=== PATIENT | male | born 1955 | race Native Hawaiian/Other Pacific Islander ===

== ENCOUNTER 2021-10-03 13:27 | Outpatient (RCR) | payer MEDICARE ==
[2021-10-01 14:43] VITALS: BP 141/74
[2021-10-01 15:43] LABS: HEMOGLOBIN 7.4 g/dL (13.3-17.7); MEAN PLATELET VOLUME 10.7 fL (9.0-12.2); WHITE BLOOD COUNT 4.3 10^3/uL (4.3-11.0)
[2021-10-01 16:06] LABS: ALBUMIN 3.1 GM/DL (3.2-4.5); BILIRUBIN,TOTAL 0.7 MG/DL (0.1-1.0); CALCIUM 8.7 MG/DL (8.5-10.1); CREATININE SERUM 6.51 MG/DL (0.60-1.30); POTASSIUM 4.1 MMOL/L (3.6-5.0); TOTAL PROTEIN 6.3 GM/DL (6.4-8.2)
[~2021-10-03] VITALS: Ht 183 cm; Wt 109.0 kg
[2021-10-03 13:00] VITALS: BP 0/0
== END 2021-10-31 | disposition home or self-care (01) ==
LOC: EDBD 13:27 → SDC 13:27
PROVIDERS: ATTEND Nurse Practitioner Family
DX: A41.9 Sepsis, unspecified organism (principal); Z79.2 Long term (current) use of antibiotics
CPT/HCPCS: 36569; 76937; 80053; 85027; C1751; 36415

== ENCOUNTER → 2021-10-10 | Outpatient (CLI) | payer MEDICARE | LOC: WOUNDCARE 12:56 | PROVIDERS: ATTEND Family Medicine | DX: T81.31XA Disruption of external operation (surgical) wound, not elsewhere classified, initial encounter (principal); E11.621 Type 2 diabetes mellitus with foot ulcer; E11.622 Type 2 diabetes mellitus with other skin ulcer; L97.512 Non-pressure chronic ulcer of other part of right foot with fat layer exposed; I70.235 Atherosclerosis of native arteries of right leg with ulceration of other part of foot; I70.242 Atherosclerosis of native arteries of left leg with ulceration of calf; E11.22 Type 2 diabetes mellitus with diabetic chronic kidney disease; N18.6 End stage renal disease; D69.59 Other secondary thrombocytopenia; D63.1 Anemia in chronic kidney disease; I89.0 Lymphedema, not elsewhere classified; E66.01 Morbid (severe) obesity due to excess calories | CPT/HCPCS: 87070; 87205; A6197; G0463; 87077; 99215 ==

== ENCOUNTER → 2021-10-12 | Outpatient (CLI) | payer MEDICARE ==
--- NOTE | 2021-10-12 16:32 | Diagnostic Imaging Report ---
INDICATION: History of diabetes, hypertension and hyperlipidemia. TECHNIQUE: Segmental pulse pressures were performed of the upper and lower extremities. FINDINGS: Resting Doppler Blood Pressures RIGHT Brachial: >254 mmHg Ankle (Posterior Tibial): 90 mm Hg Ankle (Dorsalis Pedis): >254 mm Hg Index: NC LEFT Brachial: >254 mmHg Ankle (Posterior Tibial): - mm Hg Ankle (Dorsalis Pedis): - mm Hg Index: NC IMPRESSION: Systemic hypertension. Nondiagnostic segmental pulse pressures. Ankle-Brachial Index Diagnosis/Interpretation <=0.90 Peripheral Arterial Disease 0.91-0.99 Borderline 1.00-1.40 Normal >1.40 Concern for noncompressible arteries, (assoc with Diabetes Mellitus) Dictated by: Dictated on workstation # [id number]
== END ==
LOC: RAD 14:45
PROVIDERS: ATTEND Family Medicine
DX: T81.31XA Disruption of external operation (surgical) wound, not elsewhere classified, initial encounter (principal); I70.235 Atherosclerosis of native arteries of right leg with ulceration of other part of foot; E11.621 Type 2 diabetes mellitus with foot ulcer; E11.622 Type 2 diabetes mellitus with other skin ulcer; L97.512 Non-pressure chronic ulcer of other part of right foot with fat layer exposed; I70.242 Atherosclerosis of native arteries of left leg with ulceration of calf; E11.22 Type 2 diabetes mellitus with diabetic chronic kidney disease; I12.9 Hypertensive chronic kidney disease with stage 1 through stage 4 chronic kidney disease, or unspecified chronic kidney disease; N18.6 End stage renal disease; D68.59 Other primary thrombophilia; D63.1 Anemia in chronic kidney disease; I89.0 Lymphedema, not elsewhere classified; E66.01 Morbid (severe) obesity due to excess calories; E78.5 Hyperlipidemia, unspecified
CPT/HCPCS: 93923

== ENCOUNTER → 2021-10-19 | Outpatient (CLI) | payer MEDICARE | LOC: WOUNDCARE 08:08 | PROVIDERS: ATTEND Family Medicine | DX: T81.31XA Disruption of external operation (surgical) wound, not elsewhere classified, initial encounter (principal); E11.621 Type 2 diabetes mellitus with foot ulcer; E11.622 Type 2 diabetes mellitus with other skin ulcer; L97.512 Non-pressure chronic ulcer of other part of right foot with fat layer exposed; I70.235 Atherosclerosis of native arteries of right leg with ulceration of other part of foot; I70.242 Atherosclerosis of native arteries of left leg with ulceration of calf; E11.22 Type 2 diabetes mellitus with diabetic chronic kidney disease; N18.6 End stage renal disease; D63.1 Anemia in chronic kidney disease; I89.0 Lymphedema, not elsewhere classified; E66.01 Morbid (severe) obesity due to excess calories; T87.44 Infection of amputation stump, left lower extremity; B95.2 Enterococcus as the cause of diseases classified elsewhere; Z16.22 Resistance to vancomycin related antibiotics; Z16.35 Resistance to multiple antimicrobial drugs; E55.9 Vitamin D deficiency, unspecified; E43 Unspecified severe protein-calorie malnutrition; I62.9 Nontraumatic intracranial hemorrhage, unspecified; I62.00 Nontraumatic subdural hemorrhage, unspecified; Z91.19 Patient's noncompliance with other medical treatment and regimen; F01.51 Vascular dementia, unspecified severity, with behavioral disturbance; E11.52 Type 2 diabetes mellitus with diabetic peripheral angiopathy with gangrene | CPT/HCPCS: A6197; A6260; G0463; 99211 ==

== ENCOUNTER → 2021-10-23 | Outpatient (CLI) | payer MEDICARE | LOC: WOUNDCARE 13:06 | PROVIDERS: ATTEND Family Medicine | DX: T81.31XA Disruption of external operation (surgical) wound, not elsewhere classified, initial encounter (principal); E11.621 Type 2 diabetes mellitus with foot ulcer; E11.622 Type 2 diabetes mellitus with other skin ulcer; L97.512 Non-pressure chronic ulcer of other part of right foot with fat layer exposed; I70.235 Atherosclerosis of native arteries of right leg with ulceration of other part of foot; I70.242 Atherosclerosis of native arteries of left leg with ulceration of calf; E11.22 Type 2 diabetes mellitus with diabetic chronic kidney disease; N18.6 End stage renal disease; D63.1 Anemia in chronic kidney disease; I89.0 Lymphedema, not elsewhere classified; E66.01 Morbid (severe) obesity due to excess calories; T87.44 Infection of amputation stump, left lower extremity; B95.2 Enterococcus as the cause of diseases classified elsewhere; Z16.22 Resistance to vancomycin related antibiotics; E55.9 Vitamin D deficiency, unspecified; E43 Unspecified severe protein-calorie malnutrition; I62.9 Nontraumatic intracranial hemorrhage, unspecified; I62.00 Nontraumatic subdural hemorrhage, unspecified; Z91.19 Patient's noncompliance with other medical treatment and regimen; F01.51 Vascular dementia, unspecified severity, with behavioral disturbance; E11.52 Type 2 diabetes mellitus with diabetic peripheral angiopathy with gangrene | CPT/HCPCS: A6197; G0463; 99213 ==

== ENCOUNTER → 2021-11-15 | Outpatient (CLI) | payer MEDICARE, OTHER | LOC: WOUNDCARE 09:13 | PROVIDERS: ATTEND Family Medicine | DX: T81.31XA Disruption of external operation (surgical) wound, not elsewhere classified, initial encounter (principal); E11.621 Type 2 diabetes mellitus with foot ulcer; E11.622 Type 2 diabetes mellitus with other skin ulcer; L97.512 Non-pressure chronic ulcer of other part of right foot with fat layer exposed; I70.235 Atherosclerosis of native arteries of right leg with ulceration of other part of foot; I70.242 Atherosclerosis of native arteries of left leg with ulceration of calf; E11.22 Type 2 diabetes mellitus with diabetic chronic kidney disease; N18.6 End stage renal disease; I89.0 Lymphedema, not elsewhere classified; N18.9 Chronic kidney disease, unspecified; D63.1 Anemia in chronic kidney disease; E66.01 Morbid (severe) obesity due to excess calories; T87.44 Infection of amputation stump, left lower extremity; B95.2 Enterococcus as the cause of diseases classified elsewhere; E55.9 Vitamin D deficiency, unspecified; E43 Unspecified severe protein-calorie malnutrition; I62.9 Nontraumatic intracranial hemorrhage, unspecified; I62.00 Nontraumatic subdural hemorrhage, unspecified; F01.50 Vascular dementia, unspecified severity, without behavioral disturbance, psychotic disturbance, mood disturbance, and anxiety; E11.52 Type 2 diabetes mellitus with diabetic peripheral angiopathy with gangrene; I96 Gangrene, not elsewhere classified; Z16.35 Resistance to multiple antimicrobial drugs; Z68.29 Body mass index [BMI] 29.0-29.9, adult; Z91.19 Patient's noncompliance with other medical treatment and regimen | CPT/HCPCS: 17250; 87070; 87077; 87205; G0463; 87186 ==